=== PATIENT | female | born 1980 | race Caucasian/White ===

== ENCOUNTER 2017-11-02 13:21 | Emergency (ER) | payer OTHER ==
[~2017-11-02] VITALS: Ht 165.1 cm; Wt 104.3 kg
[~2017-11-02 13:21] MED LIST: ALDOMET250 MG PO; CODE1TAB37 PO; DOCUSATE SODIU100 MG PO; GILTUSS TR TAB1 EACH; KETO10TA2 PO; MEDROLPACK PO; Mylicon 125MG PO; OSEL75CA PO; ZYRTEC10 MG PO
== END 2017-11-02 15:08 | disposition home or self-care (01) ==
LOC: ER 13:21
DX: B34.9 Viral infection, unspecified (principal); J02.9 Acute pharyngitis, unspecified

== ENCOUNTER 2018-05-02 09:38 | Outpatient (CLI) | payer OTHER | END 2018-05-02 09:53 | disposition home or self-care (01) | LOC: SONOGRAMA 09:38 → MAMO-SONO 09:45 → SONOGRAMA 09:53 | DX: K76.0 Fatty (change of) liver, not elsewhere classified (principal) ==

== ENCOUNTER 2018-05-02 10:11 | Outpatient (CLI) | payer OTHER | END 2018-05-02 10:18 | disposition home or self-care (01) | LOC: LAB 10:11 | DX: D46.4 Refractory anemia, unspecified (principal); E11.9 Type 2 diabetes mellitus without complications; E03.8 Other specified hypothyroidism; E84.0 Cystic fibrosis with pulmonary manifestations ==

== ENCOUNTER 2018-11-17 21:01 | Emergency (ER) | payer OTHER ==
[~2018-11-17] VITALS: Ht 134.6 cm; Wt 104.3 kg
[2018-11-18] MEDS ORDERED: ZOFRAN ODT4 MG PO (04:15)
[2018-11-18] MEDS ORDERED: PEPCID40 MG PO (04:15)
== END 2018-11-18 04:23 | disposition home or self-care (01) ==
LOC: ER 21:01
DX: K52.89 Other specified noninfective gastroenteritis and colitis (principal)

== ENCOUNTER 2018-12-18 11:42 | Outpatient (CLI) | payer OTHER ==
[~2018-12-18 11:42] MED LIST changes: +PEPCID40 MG PO; +ZOFRAN ODT4 MG PO
== END 2018-12-18 12:39 | disposition home or self-care (01) ==
LOC: LAB 11:42
DX: E03.8 Other specified hypothyroidism (principal); E11.65 Type 2 diabetes mellitus with hyperglycemia; E23.1 Drug-induced hypopituitarism; R94.7 Abnormal results of other endocrine function studies

== ENCOUNTER 2021-05-30 07:19 | Outpatient (CLI) | payer OTHER | END 2021-05-30 07:20 | disposition home or self-care (01) | LOC: LAB 07:19 | PROVIDERS: ATTEND Surgery | DX: I10 Essential (primary) hypertension (principal); E03.8 Other specified hypothyroidism; E78.89 Other lipoprotein metabolism disorders; N39.0 Urinary tract infection, site not specified; Z11.4 Encounter for screening for human immunodeficiency virus [HIV]; Z12.11 Encounter for screening for malignant neoplasm of colon; E55.9 Vitamin D deficiency, unspecified; R79.89 Other specified abnormal findings of blood chemistry; Z21 Asymptomatic human immunodeficiency virus [HIV] infection status; E56.8 Deficiency of other vitamins; E66.01 Morbid (severe) obesity due to excess calories; R19.8 Other specified symptoms and signs involving the digestive system and abdomen; R10.13 Epigastric pain; N18.1 Chronic kidney disease, stage 1 ==

== ENCOUNTER 2021-05-30 07:52 | Outpatient (CLI) | payer OTHER | END 2021-05-30 08:11 | disposition home or self-care (01) | LOC: RAD 07:52 | PROVIDERS: ATTEND Obstetrics & Gynecology | DX: R10.31 Right lower quadrant pain (principal); R07.89 Other chest pain; K22.8 Other specified diseases of esophagus; E66.01 Morbid (severe) obesity due to excess calories; I10 Essential (primary) hypertension; R00.0 Tachycardia, unspecified; K21.9 Gastro-esophageal reflux disease without esophagitis; N64.59 Other signs and symptoms in breast; N64.9 Disorder of breast, unspecified ==

== ENCOUNTER 2021-06-11 18:44 | Emergency (ER) | payer OTHER ==
[~2021-06-11] VITALS: Ht 162.6 cm; Wt 117.9 kg
[2021-06-11] MEDS ORDERED: BACTRIM DS TAB1 EACH PO (23:15)
== END 2021-06-11 23:39 | disposition home or self-care (01) ==
LOC: ER 18:44
DX: R10.9 Unspecified abdominal pain (principal); K76.0 Fatty (change of) liver, not elsewhere classified

== ENCOUNTER 2021-12-19 09:59 | Outpatient (CLI) | payer OTHER ==
[~2021-12-19 09:59] MED LIST changes: +BACTRIM DS TAB1 EACH PO
== END 2021-12-19 14:12 | disposition home or self-care (01) ==
LOC: LAB 09:59
PROVIDERS: ATTEND Internal Medicine
DX: E78.2 Mixed hyperlipidemia (principal)